=== PATIENT | male | born 1945 | race Caucasian/White ===

== ENCOUNTER 2021-03-24 07:19 | Outpatient (CLI) | payer OTHER, SELFPAY ==
[2021-03-24 07:26] VITALS: BMI 26.7
--- NOTE | 2021-03-24 07:27 | NMCV_ITS ---
NM negra perf SPECT r/s* [id number] Trin[address] Jonothai Age: 75 Gender: M : 1945 Exam Date: 03/24/2021 07:27 Ordering Phys: Adin Schumacher MD ([email or web address]) Technologist: ILIANA Borrero Exam Location: [facility] Indications: SHORTNESS OF BREATH STRESS TEST Please see separate stress test report in [facility] for full findings IMAGE PROTOCOL Rest/Stress 1 Exercise Day Radiopharmaceutical Dose (mCi) Administration Site Administered by Rest: Tc-99m 10.8 IV ILIANA Jarrett Sestamibi Stress:Tc-99m 32.8 IV ILIANA Jarrett Sestamibi Rest: 24-Mar-2021 60 Discovery 630 Stress: 24-Mar-2021 15 Discovery 630 Radiopharmaceutical was injected at 91 % maximum heart rate. Images obtained in supine and prone position. SPECT RESULTS Technical Quality: Excellent Raw Data Analysis: Normal Image Corrections: No attenuation or motion correction applied Summed Stress Score: 17 Summed Rest Score: 15 Summed Difference Score: 2 PERFUSION FINDINGS Moderate area of severely decreased tracer uptake in the mid and apical anterior and anteroseptal segments with a subtle area of reversibility in the apical anterior region. Moderate area of decreased uptake in the mid and apical inferior wall region, with some reversibility in the mid inferior region. Moderate to severely decreased tracer uptake in the apical segments with no significant reversibility. FUNCTIONAL RESULTS (calculated via Gated SPECT) Stress Image LV EF (%): 43 Stress EDV (mL):199 TID: 1.01 Stress ESV (mL):113 FUNCTIONAL FINDINGS: Segmental wall motion analysis revealed severe diffuse hypokinesia of the septum and the LV apex with moderate hypokinesia of the anterior wall segments. IMPRESSIONS 1. Myocardial perfusion imaging revealing moderate areas of decreased tracer uptake in the anterior, inferior and apical segments with a subtle areas of reversibility in the apical anterior and mid inferior wall segments, suggesting myocardial scarring with a small areas of jacinda-infarction ischemia in the distribution of the left anterior descending and right coronary artery. 2. Diminished LV ejection fraction 43%. 3. Multiple wall motion normalities as mentioned above. 4. Dilated LV cavity with an end-systolic volume of 113 ml. No similar previous studies are available for comparison Dr Adin Schumacher MD [facility] (Electronically Signed) Final Date: 24 March 2021 14:57 S
--- NOTE | 2021-03-24 07:27 | ECG_ITS ---
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 Interpretive Statements NAME OF STUDY: EXERCISE SESTAMIBI STRESS TEST INDICATION: Shortness of Breath PROCEDURE: The baseline electrocardiogram showed normal sinus rhythm with normal ST-Ts poor R wave progression. Possible old anteroseptal myocardial infarction.. At the baseline, the patient's blood pressure was 149/81 mm Hg with a heart rate of 97. The patient exercised for 3 minutes and 35 seconds on a standard Boy protocol. Patient attained a maximum heart rate of 144 beats per minute( 97 % of the maximum predicted heart rate) with a blood pressure at the peak exercise of 188/75 mm Hg. The EKG at the peak exercise revealed nonspecific T wave changes. Patient did not have any chest pain or any significant arrhythmis with the exercise Sestamibi was injected 1 minute prior to the peak exercise During the recovery phase, there were no new changes. Blood pressure at the end of the recovery phase was 145/85 mm Hg with a heart rate of 83 per minute. CONCLUSION: 1. Nonspecific EKG changes with the [treadmill exercise 2. No exercise-induced chest pain or cardiac arrhythmia 3. Impaired exercise tolerance, attained a maximum of 7.0 METs 4. Sestamibi/Sestamibi perfusion results pending; see separate report. Electronically Signed On 05-04-2021 0:12:36 CDT by Adin Schumacher M.D. [id number]
[2021-03-24 09:35] VITALS: BP 145/85; PULSE 85
== END 2021-03-24 07:20 | disposition home or self-care (01) ==
LOC: CDL 07:22
PROVIDERS: PCP Family Medicine; Visit Provider Internal Medicine Cardiovascular Disease
DX: R06.02 Shortness of breath (principal)
CPT/HCPCS: 78452; 93017; A9500

== ENCOUNTER 2021-03-24 07:49 | Outpatient (CLI) | payer OTHER, SELFPAY ==
[2021-03-24 08:36] LABS: Thyroid Stimulating Hormone 0.72 uIU/mL (0.27-4.20)
== END 2021-03-24 07:50 | disposition home or self-care (01) ==
LOC: LAB 07:50
PROVIDERS: PCP Family Medicine; Visit Provider Internal Medicine Cardiovascular Disease
DX: E03.9 Hypothyroidism, unspecified (principal); R00.1 Bradycardia, unspecified
CPT/HCPCS: 84443

== ENCOUNTER 2021-03-27 08:34 | Outpatient (CLI) | payer OTHER, SELFPAY ==
--- NOTE | 2021-03-27 08:45 | USCV_ITS ---
Russell Abdi Age: 75 Gender: M : 1945 Exam Date: 03/27/2021 08:48 Ordering Phys: Adin Schumacher MD ([email or web address]) Technologist: Patti Townsend Exam Location: [facility] [place] Indication: ATHEROSCLEROTIC HEART DISEASE BP: 124 / 80 HR: 58 Rhythm: Other Technical Quality: Adequate MEASUREMENTS (Male / Female) Normal Values 2D ECHO LV Diastolic Diameter PLAX 5.4 cm 4.2 - 5.9 / 3.9 - 5.3 cm LV Systolic Diameter PLAX 4.3 cm IVS Diastolic Thickness 1.6 cm 0.6 - 1.0 / 0.6 - 0.9 cm IVS Systolic Thickness 1.7 cm LVPW Diastolic Thickness 1.6 cm 0.6 - 1.0 / 0.6 - 0.9 cm LVPW Systolic Thickness 1.9 cm LVOT Diameter 2.0 cm LV Ejection Fraction 2D Teich 43.5 % LV Ejection Fraction MOD 2C 40.8 % LV Ejection Fraction 2C AL 40.7 % LA Diameter 3.5 cm LA Width 2.9 cm LA Height 4.4 cm RA Width 2.7 cm RA Height 4.0 cm Aorta at Sinotubular Diameter 2.8 cm M-MODE LV Diastolic Diameter MM 6.6 cm 4.2 - 5.9 / 3.9 - 5.3 cm LV Systolic Diameter MM 5.3 cm LV Ejection Fraction MM Teich 39.1 % IVS Diastolic Thickness MM 1.1 cm 0.6 - 1.0 / 0.6 - 0.9 cm IVS Systolic Thickness MM 1.3 cm LVPW Diastolic Thickness MM 1.3 cm 0.6 - 1.0 / 0.6 - 0.9 cm LVPW Systolic Thickness MM 1.9 cm Aortic Annulus Diameter 2.9 cm LA Ao Ratio MM 1.4 MV E Point Septal Separation 1.2 cm DOPPLER AV Peak Velocity 144.0 cm/s LVOT Peak Velocity 93.0 cm/s AV Area Cont Eq vti 1.9 cm squared AV Area Cont Eq pk 2.1 cm squared MV Peak Velocity 100.0 cm/s MV Area PHT 3.1 cm squared Mitral E to A Ratio 0.7 MV E' Velocity 31.0 cm/s Mitral E to MV E' Ratio 7.3 Mitral E to LV E' Lateral Ratio 6.2 Mitral E to LV E' Septal Ratio 8.7 TR Peak Velocity 163.9 cm/s TR Peak Gradient 10.7 mmHg TR Mean Velocity 201.9 cm/s TR Mean Gradient 16.6 mmHg TR Velocity Time Integral 69.8 cm Right Atrial Pressure 3.0 mmHg Pulmonary Artery Systolic Pressu 13.7 mmHg PV Peak Velocity 94.0 cm/s RV Acceleration Time 0.1 s RV Ejection Time 0.3 s RV AcT/ET 0.4 FINDINGS Left Ventricle Normal LV size with reduced ejection fraction of 41%. Severe hypokinesia of the septum, anteroseptum and the apical segments.Grade I/IV diastolic dysfunction (abnormal relaxation filling pattern), normal to mildly elevated filling pressures. Right Ventricle Normal right ventricular size and systolic function. Right Atrium Normal right atrial size. Left Atrium Mildly increased left atrial size. Mitral Valve Thickened mitral valve. Mild to moderate mitral valve regurgitation. Aortic Valve Thickened aortic valve. Tricuspid Valve Mild tricuspid valve regurgitation. Pulmonic Valve Pulmonic valve not well visualized. Pericardium No pericardial effusion. Aorta Normal aortic annulus size. CONCLUSIONS Normal LV size with reduced ejection fraction of 41%. Severe hypokinesia of the septum, anteroseptum and the apical segments.Grade I/IV diastolic dysfunction (abnormal relaxation filling pattern), normal to mildly elevated filling pressures. Thickened mitral valve. Mild to moderate mitral valve regurgitation. Thickened aortic valve. Mildly increased left atrial size. PA pressure could not be calculated properly. There is no pericardial effusion. There are no intracardiac masses. No previous study is available for comparison. Dr Adin Schumacher MD [facility] (Electronically Signed) Final Date: 27 March 2021 23:37 S
== END 2021-03-27 08:35 | disposition home or self-care (01) ==
PROVIDERS: PCP Family Medicine; Visit Provider Internal Medicine Cardiovascular Disease
DX: I25.10 Atherosclerotic heart disease of native coronary artery without angina pectoris (principal); I35.8 Other nonrheumatic aortic valve disorders
CPT/HCPCS: 93306

== ENCOUNTER → 2021-04-20 10:31 | Outpatient (BNVA) | payer OTHER, SELFPAY | PROVIDERS: PCP Family Medicine; Visit Provider Internal Medicine Cardiovascular Disease | DX: E78.5 Hyperlipidemia, unspecified (principal); I25.10 Atherosclerotic heart disease of native coronary artery without angina pectoris; R00.1 Bradycardia, unspecified; Z01.812 Encounter for preprocedural laboratory examination; Z20.822 Contact with and (suspected) exposure to COVID-19; Z01.818 Encounter for other preprocedural examination | CPT/HCPCS: 80048; 83880; 85025; 85610; 86850; 86900; 87635 ==

== ENCOUNTER 2021-04-25 05:45 | Day surgery (SDC) | payer OTHER, MEDICARE, SELFPAY ==
[2021-04-25] VITALS (29 sets, daily range): BP systolic 114–166; BP diastolic 63–92; PULSE 43–66; RESP 0–18; TEMP 36.6; O2SAT 93–99; BMI 27.1
--- NOTE | 2021-04-25 06:00 | XACV_ITS ---
Ht: 180 cm Wt: 88 kg BSA: 2.12 m2 Gender: Male : 1945 Any Known Allergies: Other Exam Priority: Routine Indication(s): - Abnormal nuclear perfusion study Procedure(s): Procedure Description: Diagnostic procedure Procedure Description: Left Heart Catheterization Procedure Description: Left ventriculography Procedure Description: Venous Graft Catheterization Procedure Description: ZAPATA Graft Catheterization Procedure Description: Coronary Angiography Diagnostic Cath Status: Elective Diagnostic Findings * Coronary angiography shows right dominance. * Left main is a small to medium caliber vessel with a mild diffuse disease. * The left anterior descending artery appears to be totally occluded proximally. * The left circumflex artery was found to give off a high obtuse marginal branch which bifurcates proximally. One of the bifurcation branches were found to have competitive blood flow. Proximal segment of this artery was found to have moderate diffuse disease. * The right coronary artery is a small to medium caliber dominant vessel with no significant stenotic lesions. * The saphenous venous graft to the obtuse marginal artery was found to be widely patent with no significant stenotic lesion. The distal anastomotic site appears to have diffuse ectasia. * The saphenous venous graft to the diagonal branch was found to be patent, antegradely filling up the mid and distal left anterior descending artery. * The ZAPATA to the left anterior sending artery was found to be atretic. Conclusions 1. Patient has prior CABG. 2. 75-year-old white male with history of coronary disease, status post coronary artery bypass surgery, presented with dyspnea on exertion. Echocardiogram revealed elevation fraction around 40 to 45% with multiple wall motion normalities. Myocardial perfusion imaging revealing areas of fixed defects with small areas of reversible defects, suggestive of myocardial scarring with jacinda-infarction ischemia. For further evaluation of his coronary status as well as the graft status, a cardiac catheterization was recommended. Patient underwent left heart catheterization with left and right coronary angiogram,LV angiogram and graft angiogram today. The findings are as follows. 3. Total occlusion of the left interesting artery proximally at the ostium. Moderate diffuse disease in one of the bifurcation branches of the first obtuse marginal artery. Patent venous graft to the diagonal artery and obtuse marginal artery. The ZAPATA to the LAD was found to be atretic. LV ejection fraction around 35%. LVEDP of 19 mmHg.. Recommendations * Continue current medical management and risk factor modification. Diagnostic RX Recommendation: medical therapy and/or counseling LV EDP: 19 mmHg Ventriculography Ejection Fraction: 35.0 % Left Ventriculography Findings: * LV gram was performed in the ANDREW projection. The LV cavity was found to be dilated. There is diffuse hypokinesia of the left ventricle. LV ejection fraction was around 35%. No obvious filling defects were noted. The study was a suboptimal quality. The LVEDP was 19 mmHg. Pressures Phase:Rest AO : 151 / 23 ( 53 ) @ 6:42:00 AM LV : 151 / -6 / 19 @ 6:41:00 AM 150 / -4 / 22 @ 6:42:00 AM Clinical Evaluation EBL: 5mL-10mL Procedural Details Procedure Consent Obtained. Admit Source: Out Patient. Current Diagnosis : Chest Pain. Pre-Procedure Time Out. Identified patient by full name and date of as verbalized by the patient/guarantor. Does the consent match the physician's order: Yes. Accurate & Complete Informed Consent: Yes. Inpatient/Outpatient History & Physical on Chart: Yes. If H&P is completed, is and addenduem needed: No; If yes, is the addendum complete: N/A. Visualize and Verify Site with Patient/Guarantor: N/A. Relevant Radiology Images available: Yes. Pre-op teaching completed and patient verbalized understanding. The risks, benefits, and alternatives of sedation and/or procedure were discussed by physician. The patient agrees to continue. Procedure started. CSHA Clinical Fraility Score: 3: Managing Well. Neck Band Operator Indications: Cardiomyopathy. Chest Pain Symptom Assessment: Atypical Angina. Cardiovascular Instability: No. Patient is Stable. Correct patient, site and procedure confirmed by cath team. Current diagnosis: Chest Pain. PERRLA. Strong, equal hand legal arbitrator bilaterally. Lungs clear x 5 lobes. IV Site on Arrival: 20 gauge in the right anticubital. IV Fluids: 0.9% NaCl at KVO. 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 Pre Procedural Pulses: bilateral radial was 3+. Pre Procedural Pulses: bilateral posterior tibial was 1+. Pre Procedural Pulses: bilateral dorsalis pedis was 2+. Oxygen started at 3liters/min via nasal canula. bilateral groins was prepped with chloroprep then draped in the usual sterile fashion. Physician notified. Baseline sample Acquired. HR: 59 BPM. Physician arrived. Physician scrubbed in. Equipment: 5F - Femoral. Equipment: 6F - Femoral. Heparinized Saline (2 units/mL), 1000 mL bag. Kit, Micropuncture. Cardiac Cath Pack. ACIST Manifold Kit Model BT 2000. Inventory is JJ 5F 11cm Shakira Plus Sheath. Immediate Pre-Procedure Time Out. Correct Patient: Yes; Correct Procedure: Yes; Correct Site: Yes; Correct Patient Position: Yes; Correct Supplies: Yes; Dried Flammable Prep: Yes; Blood Products Available: N/A;. Lidocaine 1% infiltrated to the right groin. Arterial access obtained with micropuncture set. A CRD 5F JL4 Diagnostic Catheter was advanced over the wire and used for Left coronary angiography. Catheter seated in the LCS. Multiple views taken of left coronary artery. Catheter removed over the wire. A CRD 5F JR4 Diagnostic Catheter was advanced over the wire and used for Right coronary angiography. Multiple views taken of right coronary artery. Redirected to the grafts. SVG's to Diaganol visualized and patent. SVG's to OM visualized and patent. Catheter redirected to the IM graft. ZAPATA to LAD visualized. Catheter removed over the wire. A CRD 5F 145 Angled Pig Diagnostic Catheter was advanced over the wire and used for Ventriculography. EDP Sample taken: LV 151/-7,19; HR: 58 BPM; SpO2: 99%. LV gram performed in ANDREW @ 10 mL/second for a total of 30 mL. Patient EF: Abnormal. EDP Sample taken: LV 150/-5,22; HR: 56 BPM; SpO2: 99%. Pullback taken: LV Off; AO Off; Mean: , Peak to Peak: , SEP: ; HR: 56 BPM; SpO2: 99%. Patient's family updated. Physician review of films. Physician Scrubbed out. Post op Diagnosis: Atretic ZAPATA, Patient venous grafts to OM AND DIAGONAL. A Suture was successful obtaining hemostatsis at the Right Femoral artery insertion site. Sheath(s) sutured into position with 2-0 silk and sterile 4x4's and Op-site applied over the site. No oozing or signs and symptoms of hematoma noted. Arterial sheath flushed and connected to tranducer and pressure bag with heparinized saline. Post Procedure: Pulses reassessed and unchanged. PERRLA. Strong, equal hand legal arbitrator bilaterally. No VTE prophylaxis required. Medication's Wasted: Lidocaine 1% = 4 mL. Medication's Wasted: Heparin = 3000 units. Medication's Wasted: Fentanyl 25 mcg. Medication's Wasted: Versed = 0.5 mg. Total IV fluids: 45 mL. Fluoro: 6:07. Contrast type used: Omnipaque 300 mgI/mL, 500 mL bottle. Omnipaque 153 ml. Complications: NONE. Estimated blood loss: 5mL-10mL. Procedure completed. Patient transferred by bed to CPRU. Vital chart was stopped. Access Site Site: Right Femoral artery Sheath Size: 5 Fr Hemostasis Method: Suture Hemostasis Success: Successful Procedure Medications Start: 7:20 AM Stop: 7:20 AM Medication: Fentanyl Amount: 50 mcg Route: I.V. Start: 7:20 AM Stop: 7:20 AM Medication: Versed Amount: 1 mg Route: I.V. Start: 7:26 AM Stop: 7: AM Medication: Fentanyl Amount: 25 mcg Route: I.V. Start: 7:26 AM Stop: 7:26 AM Medication: Versed Amount: 0.5 mg Route: I.V. Start: 7:27 AM Stop: 7: AM Medication: Heparin Amount: 1500 units Route: I.V. I, the attending physician, have reviewed and verified all procedure medications. Yes, all medications given per verbal order History/Risk Factors Hypertension: Yes Dyslipidemia: Yes Peripheral Arterial Disease (PAD): No Myocardial Infarction (WA): No Obesity: No Renal Disease: No Prior Interventions PCI: No CABG: Yes Valve Surgery: No Report Signatures Finalized by Dr Adin Schumacher MD [facility] on 04/25/2021 08:40 PM
[2021-04-25] MEDS: diphenhydrAMINE 50 mg Capsule PO (06:17)
--- NOTE | 2021-04-25 07:10 | W.PM.OPSUD ---
Surgery/Procedure H&P Update DATE OF PROCEDURE: April 25, 2021 DATE H&P PERFORMED: 04/12/21 H&P UPDATE INFORMATION: I have reviewed H&P completed within last 30 days, I have examined patient prior to procedure and No changes to prior documentation PREOP DIAGNOSIS: ASHD PRIMARY INDICATION FOR PROCEDURE: WYATT/abnormal myocardial perfusion imaging/ S/P CABG PLANNED PROCEDURE: Operation Date: 04/25/21 07:00 Proposed Procedures p Cardiac Catheterization(Left) - Adin Schumacher MD PATIENT REASSESSED PRIOR TO SEDATION, WITH NO CHANGE NOTED: Yes PHYSICAL EXAM: alert, clear to auscultation bilaterally and regular rate & rhythm AIRWAY EVAL/ANESTHESIA PLAN: normal airway, see other exam findings, ASA III, Monitored Anesthesia, Local Anesthesia, Risks, benefits & alternatives of sedation and/or procedure discussed and Patient agrees to continue as planned
--- NOTE | 2021-04-25 07:55 | PC.NURSE ---
recovery recvd pt from test lab technician post diagnostic [facility]. arrived with a sheath in place but test lab technician staff is pulling it now. pt placed on monitor and will be monitored per protocol. sinus nando. pt tired but able to arouse when called on. pt educated on right leg restrictions and will be educated throughout recovery. pt also educated on restriction and acknowledged understanding. she plans to stay bedside while in recovery.
--- NOTE | 2021-04-25 08:15 | PC.NURSE ---
site check access site now with dressing in place. no hematoma or bleeding noted. again pt educated on restrictions of right leg. pt and again acknowledged understanding. pt still sinus nando in rhythm. pt only states he is in pain when i feel for any bruising in the groin. states when i am not checking he is in no pain.
--- NOTE | 2021-04-25 13:21 | PC.NURSE ---
pt up and walked the length of CPRU. pt complains of no pain. feels good to walk lunch given to pt.
== END 2021-04-25 14:31 | disposition home or self-care (01) ==
PROVIDERS: PCP Family Medicine; Visit Provider Internal Medicine Cardiovascular Disease
DX: I25.110 Atherosclerotic heart disease of native coronary artery with unstable angina pectoris (principal); I25.82 Chronic total occlusion of coronary artery; Z95.1 Presence of aortocoronary bypass graft; I10 Essential (primary) hypertension; E78.5 Hyperlipidemia, unspecified; Z79.82 Long term (current) use of aspirin; N40.0 Benign prostatic hyperplasia without lower urinary tract symptoms; E03.9 Hypothyroidism, unspecified; Z82.49 Family history of ischemic heart disease and other diseases of the circulatory system
CPT/HCPCS: 36415; 93459; C1769; C1887; C1894; J1644; J2250; J3010; J7030; Q0163; Q9967

== ENCOUNTER 2021-04-28 09:07 | Outpatient (CLI) | payer OTHER, MEDICARE, SELFPAY ==
--- NOTE | 2021-04-28 | NMCV_ITS ---
[place] [id number] Russell Abdi Age: 75 Gender: M : 1945 Exam Date: 04/28/2021 09:21 Ordering Phys: Adin Schumacher MD ([email or web address]) Technologist: ILIANA Borrero Exam Location: [facility] Indications: CARDIOMYOPATHY, CABG Camera Used: Vertical Acuity Imaging Protocol: three view gated blood pool study Technical Image Quality: Good Dose: Admin Site: Administered By: Tc-99m Tagged RBCs: 24.5 IV - Right ILIANA Jarrett Antecubital PYP: EJECTION FRACTION: Automatic LV EF: 50 Rest RV EF: Manual LV EF: FINDINGS Mild diffuse hypokinesia of the septum and the LV apex LV ejection fraction of 50% CONCLUSIONS 1. Left ventricular ejection fraction 50%. 2. LV wall motion analysis revealing mild diffuse hypokinesia of the septum and the LV apex Dr Adin Schumacher MD [facility] (Electronically Signed) Final Date: 28 April 2021 18:14 S
--- NOTE | 2021-04-28 09:21 | NMCV_ITS ---
[place] [id number] Russell Abdi Age: 75 Gender: M : 1945 Exam Date: 04/28/2021 09:21 Ordering Phys: Adin Schumacher MD ([email or web address]) Technologist: ILIANA Borrero Exam Location: [facility] Indications: CARDIOMYOPATHY, CABG Camera Used: [employer] Protocol: three view gated blood pool study Technical Image Quality: Good Dose: Admin Site: Administered By: Tc-99m Tagged RBCs: 24.5 IV - Right ILIANA Jarrett Antecubital PYP: EJECTION FRACTION: Automatic LV EF: 50 Rest RV EF: Manual LV EF: FINDINGS Mild diffuse hypokinesia of the septum and the LV apex LV ejection fraction of 50% CONCLUSIONS 1. Left ventricular ejection fraction 50%. 2. LV wall motion analysis revealing mild diffuse hypokinesia of the septum and the LV apex Dr Adin Schumacher MD [facility] (Electronically Signed) Final Date: 28 April 2021 18:14 S
== END 2021-04-28 09:08 | disposition home or self-care (01) ==
LOC: RAD 09:12
PROVIDERS: PCP Family Medicine; Visit Provider Internal Medicine Cardiovascular Disease
DX: Z95.1 Presence of aortocoronary bypass graft (principal); I42.9 Cardiomyopathy, unspecified; I51.89 Other ill-defined heart diseases
CPT/HCPCS: 78472; 78496; A9560

== ENCOUNTER → 2021-05-03 13:48 | Outpatient (BNVA) | payer OTHER, SELFPAY | PROVIDERS: PCP Family Medicine; Visit Provider Nurse Practitioner Family | DX: I25.10 Atherosclerotic heart disease of native coronary artery without angina pectoris (principal) | CPT/HCPCS: 80048 ==

== ENCOUNTER → 2021-05-25 15:39 | Outpatient (BNVA) | payer OTHER, SELFPAY | PROVIDERS: PCP Family Medicine; Visit Provider Internal Medicine Cardiovascular Disease | DX: I25.5 Ischemic cardiomyopathy (principal); R06.02 Shortness of breath; I50.33 Acute on chronic diastolic (congestive) heart failure; E78.5 Hyperlipidemia, unspecified | CPT/HCPCS: 80048; 83880 ==

== ENCOUNTER → 2021-11-20 10:48 | Outpatient (BNVA) | payer OTHER, SELFPAY | PROVIDERS: PCP Family Medicine; Visit Provider Internal Medicine Cardiovascular Disease | DX: I25.5 Ischemic cardiomyopathy (principal); G47.33 Obstructive sleep apnea (adult) (pediatric); I25.10 Atherosclerotic heart disease of native coronary artery without angina pectoris; E78.5 Hyperlipidemia, unspecified; E03.9 Hypothyroidism, unspecified; I10 Essential (primary) hypertension; Z79.82 Long term (current) use of aspirin; Z95.1 Presence of aortocoronary bypass graft; Z87.891 Personal history of nicotine dependence | CPT/HCPCS: 99214 ==

== ENCOUNTER → 2022-03-01 12:28 | Outpatient (BNVA) | payer OTHER, SELFPAY | PROVIDERS: PCP Family Medicine; Visit Provider Family Medicine | DX: R07.9 Chest pain, unspecified (principal); R10.13 Epigastric pain; R74.8 Abnormal levels of other serum enzymes; R74.01 Elevation of levels of liver transaminase levels | CPT/HCPCS: 80053; 83690; 83735; 84484; 85025; 86141 ==

== ENCOUNTER → 2022-03-06 13:39 | Outpatient (BNVA) | payer OTHER, SELFPAY | PROVIDERS: PCP Family Medicine; Visit Provider Family Medicine | DX: R74.01 Elevation of levels of liver transaminase levels (principal); R74.8 Abnormal levels of other serum enzymes; I25.5 Ischemic cardiomyopathy; E03.9 Hypothyroidism, unspecified; I10 Essential (primary) hypertension; E78.5 Hyperlipidemia, unspecified | CPT/HCPCS: 82977; 83615; 86618; 86664; 86665; 86666; 86757 ==

== ENCOUNTER 2022-04-06 09:47 | Outpatient (CLI) | payer MEDICARE, SELFPAY ==
--- NOTE | 2022-04-06 10:00 | CT_ITS ---
WS: [id number] CT ABDOMEN AND PELVIS WITH CONTRAST HISTORY: Abdominal pain, possible liver abnormality. TECHNIQUE: Imaging performed of the abdomen and pelvis with IV contrast. Single phase imaging of the abdomen. Coronal and sagittal reformats are submitted. All CT scans at [facility] use at [address] [address] one of these dose optimization techniques: automated exposure control; mA and/or kV adjustment per patient size (includes targeted exams where dose is matched to clinical indication); or iterative re construction. IV CONTRAST: Omnipaque 350; 95 mL IV. Oral contrast: No DLP: 1156.33 mGy.cm COMPARISON: None available. Lower thorax: Numerous tiny microfoci throughout the lung bases. These are predominantly calcified. H eart is normal size. No hiatal hernia. Liver/biliary system: Normal size liver. Mild decreased attenuation from hepatic steatosis at the fal ciform ligament. Mild central bile duct dilatation. Common bile duct is dilated measuring up to 12 mm . This may be based on the patient's cholecystectomy. No mass identified at the pancreatic head is no stone in the distal duct. Gallbladder: Status post cholecystectomy. Pancreas: Normal size pancreas and pancreatic duct. No adjacent inflammation. Spleen: Splenic granulomata. Normal size. Adrenal glands: Normal. Right kidney: Normal size kidney with mild perinephric stranding. Cortical hypodensities. Some of the se are too small to characterize. The largest in the mid kidney measures 2.2 x 2.6 cm. No renal obstr uction. No solid mass. Left kidney: Normal size with mild perinephric stranding. Cortical hypodensities. Some of these are t oo small to characterize. No solid mass. Aorta: Mild atherosclerosis with no aneurysm. Stenosis involving the proximal celiac axis. No complet e occlusion. This calcification in the proximal celiac axis. SMA is normal. Lymphadenopathy: None. Free fluid: None. GI tract: Normally distended stomach. No small bowel obstruction. No ischemic changes throughout the GI tract are evident. No wall thickening. Normal appendix. Numerous diverticula in the distal colon w ithout acute diverticulitis. Abdominal wall: Unremarkable abdominal wall. No hernia. Pelvis: No free fluid or adenopathy within the pelvis. Prostate gland enlargement with calcifications . Mild encroachment into the bladder. No bladder wall enhancement. Bones: RIGHT scoliosis lumbar spine. No destructive bone lesion. CT/CT abdomen pelvis w con* [id number] IMPRESSION: 1. 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 No ischemic changes at this time. Patient is at risk for a GI tract ischemia. 2. Dilated common bile duct may be physiologic and related to the cholecystect sandi. 3. Prior cholecystectomy. 4. No liver lesion is identified other than mild hepatic steatosis along the f alciform ligament and the central bile duct dilatation. 5. Bilateral renal cysts and too small to characterize cortical hypodensities. 6. Colonic diverticulosis without acute diverticulitis.
== END 2022-04-06 09:48 | disposition home or self-care (01) ==
PROVIDERS: PCP Family Medicine; Visit Provider Family Medicine
DX: R74.8 Abnormal levels of other serum enzymes (principal); K57.90 Diverticulosis of intestine, part unspecified, without perforation or abscess without bleeding; Q61.02 Congenital multiple renal cysts; Z90.49 Acquired absence of other specified parts of digestive tract
CPT/HCPCS: 74177; Q9967

== ENCOUNTER 2022-04-13 16:50 | Emergency (ER) | payer OTHER, MEDICARE, SELFPAY ==
[2022-04-13] VITALS (9 sets, daily range): BP systolic 119–151; BP diastolic 61–82; PULSE 52–88; RESP 15–20; TEMP 36.4; O2SAT 96–99; BMI 25.5
--- NOTE | 2022-04-13 17:02 | ED_ITS ---
HPI - Chest Pain General: Chief Complaint: Chest Pain Stated Complaint: Chest pains Time Seen by Provider: 04/13/22 17:02 History of Present Illness: Mr. Blackwell is a 76-year-old gentleman with significant past medical history of hypertension, hyperlipidemia, CAD with history of CABG, ischemic cardiomyopathy, celiac artery stenosis who presents to the emergency department due to epigastric abdominal pain with radiation to the back. Endorses symptoms of been intermittent for a number of months however been more severe today. Symptoms typically exacerbated by eating and caffeine. She denies associated changes in bowel function or hematuria. Intensity symptoms currently moderate to severe. Worse with palpation movement and exacerbating factors as above. Aching in quality. No other specific changes in health, exacerbating, or alleviating factors identified. Timing of current episode: constant Prior episodes: Yes Onset: during rest Pain location: epigastric Severity: severe Review of Systems General: Reports: 10 or more systems reviewed and unremarkable except in HPI and below PFSH ED PFSH: Medical History BPH (benign prostatic hyperplasia) CAD (coronary artery disease) Hypertension Hypothyroidism Surgical History History of hernia surgery Hx of CABG Hx of cataract extraction Hx of knee surgery Family History Father CAD (coronary artery disease) Cancer Brother No problems noted. Mother CAD (coronary artery disease) Stroke Family/Other Diabetes Denies family history of Clotting disorder Dementia Chronic kidney disease (CKD) Suicide Anesthesia complication Bleeding disorder Lung disease Social History Smoking and tobacco status: former smoker Alcohol intake: current Alcohol intake frequency: holidays/special occasions only Physical Exam Const: COMMON NORMALS: alert GENERAL APPEARANCE: cooperative and well developed HENMT: COMMON NORMALS: normocephalic and atraumatic HEAD & SCALP: normocephalic and atraumatic Eye: COMMON NORMALS: conjunctivae normal CONJUNCTIVA: Yes conjunctivae normal SCLERA: sclerae normal Neck/C-Spine: COMMON NORMALS: supple GENERAL: Yes trachea midline Resp: COMMON NORMALS: normal respiratory effort and clear to auscultation bilaterally EFFORT & INSPECTION: Yes able to speak in complete sentences A USCULTATION: clear to auscultation bilaterally Cardio: COMMON NORMALS: regular rate and regular rhythm RATE: regular rate RHYTHM: regular rhythm GI: COMMON NORMALS: Soft to palpation PALPATION: Yes Soft to palpation, Yes Tenderness to palpation present (GI) (Epigastric), No Guarding due to palpation present (GI) and No Rigid due to palpation Extremity: GENERAL: Yes normal exam except as noted and No edema Neuro: COMMON NORMALS: moves all extremities SENSORIUM/ORIENTATION: Yes alert and No Orientation impaired Psych: COMMON NORMALS: mental status grossly normal and Normal thought process present THOUGHT PROCESS: Normal thought process present Course ED course: - Patient was seen and evaluated by me at bedside - Patient placed on cardiac monitors, IV access obtained - Initial evaluation notable for exam as above. - Labs and xrays personally interpreted by me. EKG shows sinus rhythm with nonspecific ST segment abnormalities, no STEMI. -Aspirin and analgesia given - Labs notable for no leukocytosis, normal hemoglobin. Metabolic panel without significant change from baseline. Delta troponin negative. - Imaging notable for no lobar consolidation or pneumothorax. CTA of abdomen and pelvis demonstrates stenosis of celiac artery and renal artery without evidence of acute occlusion. - Upon serial reexamination after treatment the patient was improved - Based on patient history, evaluation, and testing as interpreted the most likely cause of the patient's condition is intestinal angina. Patient has plan already to follow-up with vascular surgery. - The results of ED evaluation were discussed with the patient including prescriptions and/or symptomatic cares (if applicable) including appropriate and responsible use, followup plan, and return precautions. The patient verbalized understanding and felt safe for discharge. - Patient discharged in satisfactory condition. Note: Click bubbles or prepopulated youssef in note writing are used for assistance with data collection and billing and are inherently more limited than narrative and other text portions of this note. Please use narrative for additional clinical history and defer to narrative/free test for any case of contradictory information. If information appears in only free text or click bubble it should be considered present or absent as reported. Please contact note flex o writer operator for clarifications of clinical information or contradictory information. MDM is a brief summary, contradictory or erroneous seeming information should be clarified and full note should be reviewed. Vital Signs: Vital signs: Vital Signs Temperature 97.5 F L 04/13/22 16:55 Pulse Rate 62 04/13/22 20:32 Respiratory Rate 19 H 04/13/22 20:44 Blood Pressure 132/66 04/13/22 20:44 Pulse Oximetry 96 04/13/22 20:44 Oxygen Delivery Me thod 04/13/22 19:26 MDM - Chest Pain Medical Decision Making 76-year-old gentleman presenting with is more likely epigastric pain initially described as chest pain. Likely related to intestinal angina. No evidence of acute surgical abdomen or surgical emergency. Patient comfortable with plan to follow-up in the outpatient setting as previously discussed with vascular surgery. Medical Records I reviewed the patient's medical records. Lab Data I reviewed the patient's lab results. : 04/13/22 17:29 04/13/22 17:29 Radiology Impressions Chest X-Ray 04/13/22 17:12 IMPRESSION: Old granulomatous disease. No acute infiltrate. Abdomen/Pelvis CTA 04/13/22 18:37 IMPRESSION: 1. Moderate atherosclerotic disease as described 2. Stenosis of the celiac artery and [id number] renal artery stenosis 3. No major vascular occlusion. 4. No source of gastrointestinal bleeding is identified Laboratory Results WBC 7.9 10^3/uL (4.0-10.0) 04/13/22 17:29 RBC 4.49 10^6/uL (4.1-5.3) 04/13/22 17:29 Hgb 14.5 g/dL (11.7-16.6) 04/13/22 17:29 Hct 42.6 % (42.0-52.0) 04/13/22 17:29 MCV 94.9 fl (80-94) H 04/13/22 17:29 MCH 32.3 pg (28.0-34.0) 04/13/22 17:29 MCHC 34.0 g/dL (30.0-36.0) 04/13/22 17:29 RDW 12.6 % (12.1-15.1) 04/13/22 17:29 Plt Count 235 10^3/cmm (130-400) 04/13/22 17:29 MPV 8.3 fL (7.4-10.4) 04/13/22 17:29 Neut % (Auto) 53.7 % 04/13/22 17:29 Lymph % (Auto) 32.9 % 04/13/22 17:29 [place] % (Auto) 10.7 % 04/13/22 17: Eos % (Auto) 2.0 % 04/13/22 17: Baso % (Auto) 0.6 % 04/13/22 17: Neut # (Auto) 4.24 10^3/uL (1.8-7.7) 04/13/22: Lymph # (Auto) 2.6 10^3/uL (0.8-4.8) 04/13/22: [place] # (Auto) 0.9 10^3/uL (0.2-0.9) 04/13/22: Eos # (Auto) 0.2 10^3/uL (0.0-0.8) 04/13/22: Baso # (Auto) 0.1 10^3/uL (0.0-0.1) 04/13/22: Nucleated RBC % (auto) 0 % 04/13/22: Nucleated RBCs # 0.0 /100WBC 04/13/22 17: Sodium 139 mmol/L (136-145) 04/13/22 17: Potassium 4.6 mmol/L (3.5-5.1) 04/13/22: Chloride 104 mmol/L (98-107) 04/13/22: Carbon Dioxide 25 mmol/L (22-29) 04/13/22: Anion Gap 14.6 (5-19) 04/13/22 17:29 BUN 17 mg/dL (8-23) 04/13/22: Creatinine 0.8 mg/dL (0.7-1.2) 04/13/22 17:29 GFR Calculation Not Reportable 04/13/22 17: Glucose 82 mg/dL (65-115) 04/13/22: Calculated Osmolality 289 mOsm/kg (285-295) 04/13/22: Lactate 1.3 mmol/L (0.5-2.2) 04/13/22: Calcium 9.3 mg/dL (8.5-10.5) 04/13/22 17: Total Bilirubin 0.7 mg/dL (0.15-1.2) 04/13/22: AST 65 U/L (0-40) H 04/13/22 17:29 ALT 76 U/L (0-41) H 04/13/22 17:29 Alkaline Phosphatase 298 U/L (40-130) H 04/13/22 17:29 Troponin T Baseline 13 ng/L (0-15) 04/13/22 17:29 Troponin T 120 Minute 11.84 ng/L (0-15) 04/13/22 19:25 Delta Troponin T -1.16 ABS# (0-10) L 04/13/22 19:25 NT-Pro-B Natriuret Pep 251 pg/mL (0-125) H 04/13/22 17:29 Total Protein 7.7 g/dL (6.6-8.7) 04/13/22 17:29 Albumin 4.4 g/dL (3.5-5.2) 04/13/22 17:29 Globulin 3.3 g/dL (1.3-4.6) 04/13/22 17:29 Lipase 20 U/L (13-60) 04/13/22 17:29 Discharge Plan Discharge Patient Disposition: Home Clinical Impression: Intestinal angina Condition: Stable Prescriptions: New ondansetron 4 mg tablet,disintegrating 4 mg PO Q8H PRN (Reason: nausea and vomiting) Qty: 15 0RF oxycodone 5 mg tablet 5 mg PO Q4H PRN (Reason: pain) Qty: 14 0RF No Action aspirin [Adult Aspirin Regimen] 81 mg tablet,delayed release (DR/EC) 81 mg PO DAILY atorvastatin 40 mg tablet 40 mg PO DAILY metoprolol succinate 25 mg tablet extended release 24 hr 25 mg PO DAILY nitroglycerin [Nitrostat] 0.4 mg tablet, sublingual 0.4 mg sublingual Q5M PRN (Reason: CP) Rx Instructions: do not exceed 3 doses per episode tamsulosin 0.4 mg capsule 0.4 mg PO DAILY levothyroxine 150 mcg capsule 150 mcg PO DAILY magnesium oxide 400 mg (241.3 mg magnesium) tablet 400 mg PO BID Qty: 200 3RF Entresto 49-51 mg tablet 1 tab PO BID 30 Days Qty: 60 3RF sildenafil 50 mg tablet 50 mg PO DAILY Qty: 30 3RF Rx Instructions: take 1 tablet by mouth as directed 30-60 minutes prior to sexual activity zinc 15 mg Tablet 15 mg PO DAILY Prilosec 10 mg Susp,Delayed Release For Recon 20 mg PO DAILY cholecalciferol (vitamin D3) [Vitamin D3] 125 mcg (5,000 unit) Tablet 150 mcg PO DAILY Discharge Orders: Discharge ED (Routine); Ordered 04/13/22 Ordered By: Zane Henderson Referrals: Camilo Harrell MD [Primary Care Provider] - Discharge Diet: Usual diet Discharge Activity: Increase activity as tolerated Patient Instructions: Abdominal Pain (ED), Opioid Safety Activity Restrictions/Additional Instructions: Thank you for visiting the emergency department. You were seen and evaluated for abdominal pain. The most likely cause of your symptoms is related to celiac artery stenosis and intestinal angina. Please continue plan to follow-up with vascular surgery. Please return to the emergency department for worsening symptoms, fever, any blood in stool or vomiting, or anything else that you are concerned about a feel needs emergency department evaluation. Coding Level of Care Code ED Mobile Designer for Vanessa Fwmichael Exam Comprehensive
--- NOTE | 2022-04-13 17:12 | ECG_ITS ---
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 Measurements Intervals [place] Rate: 58 P: 60 GA: 167 QRS: -3 QRSD: 101 T: 57 QT: 391 QTc: 386 Interpretive Statements SINUS BRADYCARDIA ANTERIOR MYOCARDIAL INFARCTION , OF INDETERMINATE AGE No previous ECG available for comparison Electronically Signed On 04-14-2022 13:17:17 CDT by Lula Perrin M.D. [id number] f
--- NOTE | 2022-04-13 17:12 | XRR_ITS ---
PROCEDURE INFORMATION: Exam: XR Chest Exam date and time: 04/13/2022 5:26 PM Age: 76 years old Clinical indication: Angina; Additional info: Cp TECHNIQUE: Imaging protocol: Radiologic exam of the chest. Views: 1 view. COMPARISON: CT abdomen pelvis w con* [id number] 04/06/2022 10:22 AM FINDINGS: Lungs: There are numerous scattered tiny calcified granulomas throughout both lungs consistent with prior granulomatous infection. Pleural spaces: Unremarkable. No pleural effusion. No pneumothorax. Heart/Mediastinum: Heart is upper limits normal in size. Bones/joints: Sternotomy wires and mediastinal surgical clips are present, consistent with previous coronary arterial bypass grafting. There is healing fracture midshaft of the left clavicle. XR/XR chest 1V portable [id number] IMPRESSION: Old granulomatous disease. No acute infiltrate.
[2022-04-13] MEDS: aspirin 81 mg Chew Tablet 324 MG PO (17:18)
[2022-04-13] MEDS: morphine 4 mg/mL SDV 1 mL IVP (17:32)
[2022-04-13 17:34] LABS: Basophils # 0.1 10^3/uL (0.0-0.1); Basophils % 0.6 %; Eosinophils # 0.2 10^3/uL (0.0-0.8); Hematocrit 42.6 % (42.0-52.0); Hemoglobin 14.5 g/dL (11.7-16.6); Lymphocytes # 2.6 10^3/uL (0.8-4.8); Lymphocytes % 32.9 %; Mean Corpuscular Hemoglobin 32.3 pg (28.0-34.0); Mean Corpuscular Volume 94.9 fl (80-94); Mean Platelet Volume 8.3 fL (7.4-10.4); Monocytes # 0.9 10^3/uL (0.2-0.9); Monocytes % 10.7 %; Neutrophils # 4.24 10^3/uL (1.8-7.7); Neutrophils % 53.7 %; Nucleated Red Blood Cells % 0 %; Platelet Count 235 10^3/cmm (130-400); Red Blood Count 4.49 10^6/uL (4.1-5.3); Red Cell Distribution Width 12.6 % (12.1-15.1); White Blood Count 7.9 10^3/uL (4.0-10.0)
[2022-04-13 17:51] LABS: Lactate (Lactic Acid level) 1.3 mmol/L (0.5-2.2)
[2022-04-13 17:59] LABS: Troponin(5th) Baseline 13 ng/L (0-15)
[2022-04-13 18:08] LABS: Alanine Aminotransferase 76 U/L (0-41); Albumin Level 4.4 g/dL (3.5-5.2); Alkaline Phosphatase 298 U/L (40-130); Anion Gap 14.6 (5-19); Aspartate Amino Transferase 65 U/L (0-40); Blood Urea Nitrogen 17 mg/dL (8-23); Calcium 9.3 mg/dL (8.5-10.5); Carbon Dioxide 25 mmol/L (22-29); Chloride 104 mmol/L (98-107); Globulin 3.3 g/dL (1.3-4.6); Glucose 82 mg/dL (65-115); Lipase 20 U/L (13-60); NT Pro B Type Natriuretic Pept 251 pg/mL (0-125); Osmolality Calculated 289 mOsm/kg (285-295); Potassium 4.6 mmol/L (3.5-5.1); Sodium 139 mmol/L (136-145); Total Bilirubin 0.7 mg/dL (0.15-1.2); Total Protein 7.7 g/dL (6.6-8.7)
--- NOTE | 2022-04-13 18:37 | CTR_ITS ---
PROCEDURE INFORMATION: Exam: CTA Abdomen and Pelvis With Contrast, GI Bleeding Exam date and time: 04/13/2022 6:59 PM Age: 76 years old Clinical indication: Abdominal pain; Generalized; Prior surgery; Surgery date: 6+ months; Surgery type: Gb, open heart surgery x2; Patient HX: Verified with Dr. 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 3D rendering (Not supervised by radiologist): MIP and/or 3D reconstructed images were created by the technologist. Radiation optimization: All CT scans at this facility use at least one of these dose optimization techniques: automated exposure control; mA and/or kV adjustment per patient size (includes targeted exams where dose is matched to clinical indication); or iterative reconstruction. Contrast material: OMNIPAQUE 350; Contrast volume: 95 ml; Contrast route: INTRAVENOUS (IV); COMPARISON: CT abdomen pelvis w con* [id number] 04/06/2022 10:22 AM RADIATION DOSE METRICS: Total DLP (mGy-cm): 616.28 FINDINGS: Lungs: There are numerous calcified granulomas scattered throughout the lung bases as seen on the recent chest radiographs. Aorta: The aorta demonstrates moderate atherosclerotic calcification. There is no evidence of an abdominal aortic aneurysm. There is atherosclerotic plaque in the infrarenal abdominal aorta with mild distal stenosis. There is some ulceration of the atherosclerotic plaque. Celiac trunk and mesenteric arteries: There is a 1.5 cm sized long segment of severe stenosis of the celiac artery origin. Renal arteries: There is a single renal artery on each side. There is mild to moderate stenosis of the proximal right renal artery and mild stenosis of proximal left renal artery. Right iliac arteries: No occlusion or significant stenosis. Left iliac arteries: No occlusion or significant stenosis. Liver: There is no focal abnormality within the liver. Gallbladder and bile ducts: There has been a cholecystectomy. There is moderate biliary tract dilatation which is not unusual post cholecystectomy. There is greater degree of biliary tract dilatation compared with 04/06/2022, common bile duct measures 16 mm. Pancreas: The pancreas is normal. Spleen: The spleen demonstrates punctate calcifications, consistent with remote granulomatous organism exposure. Adrenal glands: The adrenal glands are normal. Kidneys and ureters: Multiple benign-appearing simple cortical cysts are present in both kidneys not significantly changed. There is no evidence of hydronephrosis. There is no evidence of renal or ureteral calcifications. Stomach and bowel: There is moderate diverticulosis of the colon. Many of the diverticula contain calcific material. No active extravasation of contrast is noted. If there is persistent concern for gastrointestinal bleeding study including precontrast and also delayed images may be helpful in identifying gastrointestinal bleeding. Appendix: A normal appendix is identified. Intraperitoneal space: Unremarkable. No free air. No significant fluid collection. Lymph nodes: Unremarkable. No enlarged lymph nodes. Urinary bladder: Unremarkable. No mass. Reproductive: The prostate demonstrates moderate nonspecific enlargement. The seminal vesicles are normal. The prostate gland demonstrates nonspecific parenchymal calcifications. Bones/joints: No acute fracture. No dislocation. Soft tissues: There is left inguinal hernia containing only fat. There are bilateral inguinal hernias containing fat. CT/CT angio abdomen pelvis [id number] IMPRESSION: 1. Moderate atherosclerotic disease as described 2. Stenosis of the celiac artery and [id number] renal artery stenosis 3. No major vascular occlusion. 4. No source of gastrointestinal bleeding is identified
--- NOTE | 2022-04-13 19:26 | PC.NURSE ---
2 hour troponin sent at this time per orders.
--- NOTE | 2022-04-13 19:58 | ECG_ITS ---
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 Measurements Intervals [place] Rate: 55 P: 66 SC: 188 QRS: 24 QRSD: 88 T: 74 QT: 399 QTc: 382 Interpretive Statements SINUS BRADYCARDIA POSSIBLE ANTERIOR MYOCARDIAL INFARCTION , OF INDETERMINATE AGE Compared to ECG 04/13/2022 17:00:39 No significant changes Electronically Signed On 04-14-2022 13:19:11 CDT by Lula Perrin M.D. [id number]
[2022-04-13 20:15] LABS: Troponin 5 2HR 11.84 ng/L (0-15)
[2022-04-13 20:42] LABS: Troponin 5 2HR Delta -1.16 ABS# (0-10)
== END 2022-04-13 20:56 | disposition home or self-care (01) ==
PROVIDERS: Emergency Provider Emergency Medicine; PCP Family Medicine
DX: K55.1 Chronic vascular disorders of intestine (principal); Z79.82 Long term (current) use of aspirin; I25.10 Atherosclerotic heart disease of native coronary artery without angina pectoris; I10 Essential (primary) hypertension; Z95.1 Presence of aortocoronary bypass graft; Z87.891 Personal history of nicotine dependence
CPT/HCPCS: 71045; 74174; 80053; 83605; 83690; 83880; 84484; 85025; 93005; 96374; 99285; J2270; Q9967

== ENCOUNTER → 2022-05-28 09:54 | Outpatient (BNVA) | payer OTHER, SELFPAY | PROVIDERS: PCP Family Medicine; Visit Provider Nurse Practitioner Family | DX: I25.10 Atherosclerotic heart disease of native coronary artery without angina pectoris (principal); I10 Essential (primary) hypertension; Z95.1 Presence of aortocoronary bypass graft | CPT/HCPCS: 99214 ==

== ENCOUNTER 2022-06-05 12:14 | Emergency (ER) | payer OTHER, MEDICARE, SELFPAY ==
[2022-06-05] VITALS (60 sets, daily range): BP systolic 94–128; BP diastolic 45–65; PULSE 53–79; RESP 11–31; TEMP 36.4; O2SAT 91–100; BMI 24.7
--- NOTE | 2022-06-05 12:33 | XR_ITS ---
WS: [id number] Exam: XR chest 1V portable [id number] Date/Time of Exam: 06/05/2022 1:05 PM Reason For Exam: EKG changes Comparison 04/13/2022. The lungs are hyperinflated and clear. Numerous scattered calcified granulomas throughout both lungs as well as the mediastinum. Normal cardiomediastinal silhouette. Signs of previous CABG surgery. No p leural effusions. Regional bony structures are intact. Old left clavicle fracture. XR/XR chest 1V portable [id number] IMPRESSION: 1. Healed granulomatous disease. No acute cardiopulmonary process.
--- NOTE | 2022-06-05 12:37 | ECG_ITS ---
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 Measurements Intervals [place] Rate: 67 P: 56 WI: 173 QRS: -15 QRSD: 90 T: 64 QT: 376 QTc: 399 Interpretive Statements SINUS RHYTHM POSSIBLE ANTERIOR MYOCARDIAL INFARCTION , OF INDETERMINATE AGE [30 ms Q WAVE IN V3/V4, OR R < 0.2 mV IN V4] INTERPRETATION BASED ON A DEFAULT AGE OF 40 YEARS Compared to ECG 04/13/2022 19:58:02 Sinus bradycardia no longer present Myocardial infarct finding still present Electronically Signed On 06-06-2022 0:19:38 CDT by Adin Schumacher M.D. [id number]
[2022-06-05 13:41] LABS: Basophils % 0.5 %; Eosinophils # 0.1 10^3/uL (0.0-0.8); Eosinophils % 0.6 %; Hematocrit 41.5 % (42.0-52.0); Hemoglobin 13.8 g/dL (11.7-16.6); Lymphocytes # 1.7 10^3/uL (0.8-4.8); Lymphocytes % 20.5 %; Mean Corpuscular HGB Conc 33.3 g/dL (30.0-36.0); Mean Corpuscular Hemoglobin 32.2 pg (28.0-34.0); Mean Corpuscular Volume 96.7 fl (80-94); Mean Platelet Volume 8.1 fL (7.4-10.4); Monocytes # 0.5 10^3/uL (0.2-0.9); Monocytes % 6.5 %; Neutrophils # 5.91 10^3/uL (1.8-7.7); Neutrophils % 71.4 %; Nucleated Red Blood Cells % 0 %; Platelet Count 252 10^3/cmm (130-400); Red Blood Count 4.29 10^6/uL (4.1-5.3); Red Cell Distribution Width 12.9 % (12.1-15.1); White Blood Count 8.3 10^3/uL (4.0-10.0)
[2022-06-05 14:09] LABS: Troponin T (5th) Once 15 ng/L (0-15)
--- NOTE | 2022-06-05 14:14 | ED_ITS ---
HPI - General Adult General: Chief complaint: General Medical Stated complaint: Dr. Harrell sent for EKG changes and BP issues Time Seen by Provider: 06/05/22 13:45 History of Present Illness: This patient was sent to our emergency department because of low blood pressure. He apparently has had a history of hypertension but has had his medications adjusted downwards recently but continues to still have low blood pressures. According to the family his blood pressure was in the range of approximately 70/40 2-day. He also has been noting that he has been lightheaded and a little bit more fatigued with activity recently. He denied any chest pain. He has a history of recent common bile duct stone retrieval done at [facility] but no sequelae from that procedure.Apparently has a history of ischemic cardiomyopathy in the past. No recent illness. He has been eating and drinking normally. Associated symptoms: Deny chest pain, headache(s), nausea, rash, palpitations, syncope or vomiting Review of Systems Const: Denies: fever(s) or chills Eyes: Denies: change in vision ENMT: Denies: odynophagia, nasal discharge or nasal congestion Card: Reports: lightheadedness; Denies: chest pain, palpitations, irregular heart rhythm, edema, swelling of feet/ankles, syncope or pre-syncope Resp: Denies: productive cough, non-productive cough, wheezing or stridor GI: Denies: abdominal pain, nausea, vomiting or diarrhea : Denies: flank pain, difficulty urinating, dysuria or urinary frequency Musc: Denies: neck pain, back pain, extremity pain or extremity swelling Skin/Breast: Denies: rash Neuro: Denies: headache(s), numbness in extremities, lack of coordination, dizziness, vertigo, Slurred speech present or seizure-like activity Psych: Denies: anxiety or depression Endo: Denies: polyuria or polydipsia Balwinder/Lymph: Denies: easy bruising or easy bleeding PFSH ED 2 PFSH: Medical History BPH (benign prostatic hyperplasia) CAD (coronary artery disease) Hypertension Hypothyroidism Surgical History History of hernia surgery Hx of CABG Hx of cataract extraction Hx of knee surgery Family History Father CAD (coronary artery disease) Cancer Brother No problems noted. Mother CAD (coronary artery disease) Stroke Family/Other Diabetes Denies family history of Clotting disorder Dementia Chronic kidney disease (CKD) Suicide Anesthesia complication Bleeding disorder Lung disease Social History Smoking and tobacco status: never smoked Alcohol intake: current Alcohol intake frequency: holidays/special occasions only Physical Exam Narrative: EXAM NARRATIVE: He is alert and cooperative. Hard of hearing with less than a loud spoken voice. Const: COMMON NORMALS: no acute distress, average body habitus, patient oriented x3 and healthy appearing HENMT: COMMON NORMALS: normocephalic, Normal nasal mucous membranes and turbinates present, moist oral mucous membranes and oropharynx normal HEAD & SCALP: normocephalic NOSE: Normal nasal mucous membranes and turbinates present Eye: COMMON NORMALS: Equal, round and reactive pupils present, EOMs intact bilaterally and conjunctivae normal CONJUNCTIVA: Yes conjunctivae normal PUPIL: Yes Equal, round and reactive pupils present Neck/C-Spine: COMMON NORMALS: full ROM, no JVD and No carotid bruits Chest: COMMONS NORMALS: normal inspection of the chest Resp: COMMON NORMALS: normal respiratory effort, No retractions, No use of accessory muscles and clear to auscultation bilaterally AUSCULTATION: clear to auscultation bilaterally Cardio: COMMON NORMALS: no JVD, regular rate, regular rhythm and No murmurs present (Cardio) RATE: regular rate RHYTHM: regular rhythm GI: COMMON NORMALS: Normal to inspection, nondistended, normoactive bowel sounds present, Soft to palpation, non-tender and no bruits PALPATION: Yes Soft to palpation : COMMON NORMALS: Yes no CVA tenderness BLADDER/KIDNEY EXAM: Yes no CVA tenderness Back/Pelvis: COMMON NORMALS: no CVA tenderness, thoracic and lumbar spine normal to inspection, no thoracic nor lumbar tenderness and thoraco-lumbar ROM normal Extremity: COMMON NORMALS: normal to inspection, full ROM, no calf tenderness and no pedal edema Neuro: COMMON NORMALS: patient oriented x3, moves all extremities, no focal motor deficits and no sensory deficits noted CRANIAL NERVES: Yes CN normal except as noted Psych: COMMON NORMALS: mental status grossly normal Skin: COMMON NORMALS: no rashes or lesions noted, no wounds and turgor normal GENERAL SKIN EXAM: no rashes or lesions noted and turgor normal Course Reevaluation(s): Reevaluation #1: Patient's been observed in the emergency department for prolonged period of time. His laboratories are reassuring. No elevation in troponin, no EKG changes. His pressures have improved with observation and he ambulated about the emergency department without any difficulty. Given his current scenario with some medications which may be contributing to his blood pressure being lower than optimal in addition to his weight loss I think it is reasonable for us to temporarily take him off his metoprolol and follow his blood pressures. Both he and his family voiced understanding that recommendations. Time: 18:26 Vital Signs: Vital signs: Vital Signs Temperature 97.6 F 06/05/22 12:18 Pulse Rate 60 06/05/22 17:55 Respiratory Rate 15 06/05/22 17:55 Blood Pressure 103/50 06/05/22 17:55 Pulse Oximetry 92 06/05/22 17:55 Oxygen Delivery Me thod 06/05/22 12:18 [facility] - General Adult Medical Decision Making Gentleman with known hypertension coronary disease presented to the emergency department because of concerns about low blood pressure. There is been attempts to lower his metoprolol dose but his pressure is trended downwards despite those efforts. The patient has not had any other concomitant symptoms such as chest pain shortness of breath etc. but has had some lightheadedness and dizziness. His evaluation here did not reveal any evidence of acute ischemia, other concerning changes. His pressures as well as his biomarkers and EKGs were followed and were reassuring. He has been taken off his beta-philippe temporarily and trending his blood pressures at home. Likely weight loss, his a dditive medications have contributed to his low blood pressure. He is currently stable to be discharged with outpatient follow-up. Medical Records I reviewed the patient's medical records. Prior echo revealed decreased ejection fraction of 41% with diastolic dysfunction. Lab Data I reviewed the patient's lab results. : 06/05/22 13:27 06/05/22 13:27 Radiology Impressions Chest X-Ray 06/05/22 12:33 IMPRESSION: 1. Healed granulomatous disease. No acute cardiopulmonary process. Laboratory Results WBC 8.3 10^3/uL (4.0-10.0) 06/05/22 13:27 RBC 4.29 10^6/uL (4.1-5.3) 06/05/22 13: Hgb 13.8 g/dL (11.7-16.6) 06/05/22 13: Hct 41.5 % (42.0-52.0) L 06/05/22 13: MCV 96.7 fl (80-94) H 06/05/22 13: MCH 32.2 pg (28.0-34.0) 06/05/22 13: MCHC 33.3 g/dL (30.0-36.0) 06/05/22 13: RDW 12.9 % (12.1-15.1) 06/05/22 13: Plt Count 252 10^3/cmm (130-400) 06/05/22 13: MPV 8.1 fL (7.4-10.4) 06/05/22 13: Neut % (Auto) 71.4 % 06/05/22 13: Lymph % (Auto) 20.5 % 06/05/22 13:27 [place] % (Auto) 6.5 % 06/05/22 13: Eos % (Auto) 0.6 % 06/05/22 13: Baso % (Auto) 0.5 % 06/05/22 13: Neut # (Auto) 5.91 10^3/uL (1.8-7.7) 06/05/22 13: Lymph # (Auto) 1.7 10^3/uL (0.8-4.8) 06/05/22 13: [place] # (Auto) 0.5 10^3/uL (0.2-0.9) 06/05/22 13: Eos # (Auto) 0.1 10^3/uL (0.0-0.8) 06/05/22 13: Baso # (Auto) 0.0 10^3/uL (0.0-0.1) 06/05/22 13: Nucleated RBC % (auto) 0 % 06/05/22 13: Nucleated RBCs # 0.0 /100WBC 06/05/22 13: Sodium 136 mmol/L (136-145) 06/05/22 13:27 Potassium 4.6 mmol/L (3.5-5.1) 06/05/22 13:27 Chloride 100 mmol/L (98-107) 06/05/22 13: Carbon Dioxide 24 mmol/L (22-29) 06/05/22 13:27 Anion Gap 16.6 (5-19) 06/05/22 13:27 BUN 20 mg/dL (8-23) 06/05/22 13: Creatinine 1.0 mg/dL (0.7-1.2) 06/05/22 13:27 GFR Calculation Not Reportable 06/05/22 13: Glucose 153 mg/dL (65-115) H 06/05/22 13:27 Calculated Osmolality 288 mOsm/kg (285-295) 06/05/22 13: Calcium 9.7 mg/dL (8.5-10.5) 06/05/22 13: Total Bilirubin 0.7 mg/dL (0.15-1.2) 06/05/22 13: AST 24 U/L (0-40) 06/05/22 13:27 ALT 39 U/L (0-41) 06/05/22 13:27 Alkaline Phosphatase 305 U/L (40-130) H 06/05/22 13:27 Troponin T Gen 5 ng/L 15 ng/L (0-15) 06/05/22 13:27 NT-Pro-B Natriuret Pep 276 pg/mL (0-125) H 06/05/22 13:27 Total Protein 7.3 g/dL (6.6-8.7) 06/05/22 13:27 Albumin 4.0 g/dL (3.5-5.2) 06/05/22 13:27 Globulin 3.3 g/dL (1.3-4.6) 06/05/22 13:27 Urine Color Yellow (Yellow) 06/05/22 14:44 Urine Appearance Clear (CLEAR) 06/05/22 14:44 Urine pH 6 (5-7) 06/05/22 14:44 Ur Specific [place] 1.005 (1.005-1.030) 06/05/22 14:44 Urine Protein Neg (Negative) 06/05/22 14:44 Urine Glucose (UA) Norm (Normal) 06/05/22 14:44 Urine Ketones Negative (Negative) 06/05/22 14:44 Urine Blood Neg (Negative) 06/05/22 14:44 Urine Nitrate Negative (Negative) 06/05/22 14:44 Urine Bilirubin Neg (Negative) 06/05/22 14:44 Urine Urobilinogen Norm mg/dL (Negative) 06/05/22 14:44 Ur Leukocyte Esterase Negative (Negative) 06/05/22 14:44 EKG Data EKG 1: I personally reviewed and interpreted this EKG as follows: Interpretation: Resting EKG revealed ventricular rate of 67 bpm. Normal intervals, normal axis. Does have loss of R waves anteriorly. No acute ST-T wave changes. Compared with prior tracings within the system no acute changes. Computer generated interpretation: Chest X-Ray 06/05/22 12:33 IMPRESSION: 1. Healed granulomatous disease. No acute cardiopulmonary process. EKG 2: I personally reviewed and interpreted this EKG as follows: Interpretation: Second EKG this visit revealed a controlled ventricular rate of 65 bpm. Normal intervals, normal axis. And normal intervals. Still has loss of R wave anteriorly but this is unchanged from prior tracing this visit as well asPrior EKGs within the system. Computer generated interpretation: Chest X-Ray 06/05/22 12:33 IMPRESSION: 1. Healed granulomatous disease. No acute cardiopulmonary process. Discharge Plan Discharge Patient Disposition: Home Clinical Impression: Nonspecific low blood pressure reading Condition: Stable Prescriptions: No Action aspirin [Adult Aspirin Regimen] 81 mg tablet,delayed release (DR/EC) 81 mg PO DAILY atorvastatin 40 mg tablet 40 mg PO DAILY tamsulosin 0.4 mg capsule 0.4 mg PO DAILY levothyroxine 150 mcg capsule 150 mcg PO DAILY metoprolol succinate 25 mg tablet extended release 24 hr 12.5 mg PO DAILY Qty: 30 3RF magnesium oxide 400 mg (241.3 mg magnesium) tablet 400 mg PO BID Qty: 200 3RF Entresto 49-51 mg tablet 1 tab PO BID 30 Days Qty: 60 3RF Prilosec 10 mg Susp,Delayed Release For Recon 20 mg PO DAILY cholecalciferol (vitamin D3) [Vitamin D3] 125 mcg (5,000 unit) Tablet 150 mcg PO DAILY zinc acetate 50 mg (zinc) Capsule 50 mg PO DAILY sildenafil 50 mg tablet 50 mg PO DAILY PRN (Reason: Sexual Activity) Rx Instructions: take 1 tablet by mouth as directed 30-60 minutes prior to sexual activity ondansetron 4 mg tablet,disintegrating 4 mg PO Q8H PRN (Reason: nausea and vomiting) Qty: 15 0RF Discharge Orders: Discharge ED (Routine); Ordered 06/05/22 Ordered By: Jorge Alberto Curry Referrals: Camilo Harrell MD [Primary Care Provider] - 2 weeks Discharge Diet: Usual diet and Low Salt Discharge Activity: Resume usual activity Patient Instructions: Opioid Safety, Pain Management Activity Restrictions/Additional Instructions: Stop taking your metoprolol. Continue all your other usual medications. Monitor your blood pressure twice daily and record those numbers. Should you develop chest pain shortness of breath or your blood pressure is continually higher than 160/100 you may restart your metoprolol at 6.25 mg and seek care.. Otherwise continue to monitor your blood pressure and call your doctor for a 2- week follow-up. If you develop any other concerning symptoms as described return to this or the nearest emergency department. Coding Level of Care Code ED Director Software Development for Vanessa Garcia Exam Comprehensive
[2022-06-05 14:17] LABS: Alanine Aminotransferase 39 U/L (0-41); Alkaline Phosphatase 305 U/L (40-130); Anion Gap 16.6 (5-19); Aspartate Amino Transferase 24 U/L (0-40); Blood Urea Nitrogen 20 mg/dL (8-23); Calcium 9.7 mg/dL (8.5-10.5); Carbon Dioxide 24 mmol/L (22-29); Chloride 100 mmol/L (98-107); Globulin 3.3 g/dL (1.3-4.6); Glucose 153 mg/dL (65-115); NT Pro B Type Natriuretic Pept 276 pg/mL (0-125); Osmolality Calculated 288 mOsm/kg (285-295); Potassium 4.6 mmol/L (3.5-5.1); Sodium 136 mmol/L (136-145); Total Bilirubin 0.7 mg/dL (0.15-1.2); Total Protein 7.3 g/dL (6.6-8.7)
[2022-06-05 14:46] LABS: Add Urine Microscopic? NO; Charge for UA Resulting for Rev
[2022-06-05 14:49] LABS: Specific Gravity, Urine 1.005 (1.005-1.030); Urine Appearance Clear (CLEAR); Urine Color Yellow (Yellow); pH Urine 6 (5-7)
[2022-06-05 14:50] LABS: Bilirubin Urine Neg (Negative); Blood Urine Neg (Negative); Glucose Urine UA Norm (Normal); Ketones Urine Negative (Negative); Leukocyte Esterase Urine Negative (Negative); Nitrate Urine Negative (Negative); Protein Urine Neg (Negative); Urobilinogen Urine Norm (Negative)
--- NOTE | 2022-06-05 15:08 | ECG_ITS ---
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 Measurements Intervals Walls Rate: 65 P: 33 NC: 168 QRS: -23 QRSD: 93 T: 48 QT: 376 QTc: 393 Interpretive Statements SINUS RHYTHM POSSIBLE ANTERIOR MYOCARDIAL INFARCTION , OF INDETERMINATE AGE [30 ms Q WAVE IN V3/V4, OR R < 0.2 mV IN V4] Compared to ECG 06/05/2022 12:24:59 No significant changes Electronically Signed On 06-06-2022 0:20:22 CDT by Adin Schumacher M.D. [email or web address] [email or web address] [id number]
== END 2022-06-05 18:55 | disposition home or self-care (01) ==
PROVIDERS: Family Medicine; Emergency Provider Emergency Medicine; PCP Family Medicine
DX: R03.1 Nonspecific low blood-pressure reading (principal); I10 Essential (primary) hypertension; I25.10 Atherosclerotic heart disease of native coronary artery without angina pectoris
CPT/HCPCS: 71045; 80053; 81003; 83880; 84484; 85025; 93005; 99285

== ENCOUNTER → 2022-06-25 12:54 | Outpatient (BNVA) | payer OTHER, SELFPAY | PROVIDERS: PCP Family Medicine; Visit Provider Internal Medicine Cardiovascular Disease | DX: I11.0 Hypertensive heart disease with heart failure (principal); I50.9 Heart failure, unspecified; I25.5 Ischemic cardiomyopathy; E78.5 Hyperlipidemia, unspecified; E03.9 Hypothyroidism, unspecified; G47.33 Obstructive sleep apnea (adult) (pediatric); I25.10 Atherosclerotic heart disease of native coronary artery without angina pectoris; Z95.1 Presence of aortocoronary bypass graft | CPT/HCPCS: 99214 ==

== ENCOUNTER 2022-08-17 09:12 | Outpatient (CLI) | payer OTHER, SELFPAY ==
--- NOTE | 2022-08-17 09:30 | USCV_ITS ---
Russell Abdi Age: 76 Gender: M : 1945 Exam Date: 08/17/2022 09:55 Ordering Phys: Adin Schumacher MD ([email or web address]) Technologist: Matthias Ruiz Exam Location: [facility] [place] Indication: hx cabg x4 BP: 127 / 74 HR: 55 Rhythm: Sinus Technical Quality: Adequate MEASUREMENTS (Male / Female) Normal Values 2D ECHO LV Diastolic Diameter PLAX 5.4 cm 4.2 - 5.9 / 3.9 - 5.3 cm LV Systolic Diameter PLAX 4.3 cm IVS Diastolic Thickness 1.0 cm 0.6 - 1.0 / 0.6 - 0.9 cm IVS Systolic Thickness 1.1 cm LVPW Diastolic Thickness 1.0 cm 0.6 - 1.0 / 0.6 - 0.9 cm LVPW Systolic Thickness 1.3 cm LVOT Diameter 2.1 cm LV Ejection Fraction 2D Teich 41.0 % LV Ejection Fraction MOD 2C 43.2 % LV Ejection Fraction 2C AL 44.8 % LA Diameter 4.0 cm IVC Diameter 1.2 cm M-MODE Aortic Annulus Diameter 3.2 cm LA Ao Ratio MM 1.4 MV E Point Septal Separation 1.0 cm DOPPLER AV Peak Velocity 149.0 cm/s LVOT Peak Velocity 96.0 cm/s AV Area Cont Eq vti 2.3 cm squared AV Area Cont Eq pk 2.2 cm squared MV Area PHT 5.0 cm squared Mitral E to A Ratio 1.7 MV E' Velocity 58.5 cm/s Mitral E to MV E' Ratio 9.3 Mitral E to LV E' Lateral Ratio 7.8 Mitral E to LV E' Septal Ratio 11.4 TR Peak Velocity 209.0 cm/s TR Peak Gradient 17.5 mmHg TV Peak E Velocity 67.0 cm/s Right Atrial Pressure 3.0 mmHg Pulmonary Artery Systolic Pressu 20.5 mmHg RV Acceleration Time 0.1 s FINDINGS Left Ventricle Diffuse hypokinesia of the left ventricule, more so of the septum and the anteroseptum. LV ejection fraction around 44%.Grade I/IV diastolic dysfunction (abnormal relaxation filling pattern), normal to mildly elevated filling pressures. Right Ventricle The right ventricle is normal in size and function. Right Atrium The right atrium is normal in size. Left Atrium The left atrium is normal in size. Mitral Valve Thickened mitral valve. Mild to moderate mitral valve regurgitation. Aortic Valve Thickened aortic valve. Tricuspid Valve Trace tricuspid valve regurgitation. Pulmonic Valve No gross abnormalities noted Pericardium Small echo-free space, anteriorly and posteriorly Aorta Normal aortic annulus size. IVC The inferior vena cava appears normal. CONCLUSIONS Diffuse hypokinesia of the left ventricule, more so of the septum and the anteroseptum. LV ejection fraction around 44%.Grade I/IV diastolic dysfunction (abnormal relaxation filling pattern), normal to mildly elevated filling pressures. Thickened mitral valve. Mild to moderate mitral valve regurgitation. Thickened aortic valve. Trace tricuspid valve regurgitation. Possible small pericardial effusion There are no intracardiac masses. Compared to the study from 03/27/2021, there may not be a significant change Dr Adin Schumacher MD [facility] (Electronically Signed) Final Date: 17 August 2022 12:59 S
== END 2022-08-17 09:13 | disposition home or self-care (01) ==
LOC: RAD 09:14
PROVIDERS: PCP Family Medicine; Visit Provider Internal Medicine Cardiovascular Disease
DX: I25.5 Ischemic cardiomyopathy (principal); I50.9 Heart failure, unspecified; Z95.1 Presence of aortocoronary bypass graft; I08.3 Combined rheumatic disorders of mitral, aortic and tricuspid valves
CPT/HCPCS: 93306

== ENCOUNTER → 2022-11-27 10:03 | Outpatient (BNVA) | payer OTHER, SELFPAY | PROVIDERS: PCP Family Medicine; Visit Provider Internal Medicine Cardiovascular Disease | DX: I25.10 Atherosclerotic heart disease of native coronary artery without angina pectoris (principal); I11.0 Hypertensive heart disease with heart failure; I50.9 Heart failure, unspecified; I25.5 Ischemic cardiomyopathy; G47.33 Obstructive sleep apnea (adult) (pediatric); E78.5 Hyperlipidemia, unspecified; E03.9 Hypothyroidism, unspecified; Z95.1 Presence of aortocoronary bypass graft; Z79.82 Long term (current) use of aspirin | CPT/HCPCS: 99214 ==

== ENCOUNTER 2023-01-05 16:22 | Outpatient (CLI) | payer MEDICARE, SELFPAY ==
[2023-01-09 13:04] LABS: Clostridium Difficile PCR NOT DETECTED (NOT DETECTED)
== END 2023-01-05 16:23 | disposition home or self-care (01) ==
LOC: LAB 16:23
PROVIDERS: PCP Family Medicine; Visit Provider Family Medicine
DX: R19.7 Diarrhea, unspecified (principal)
CPT/HCPCS: 87493

== ENCOUNTER → 2023-01-21 11:32 | Outpatient (BNVA) | payer MEDICARE, SELFPAY | PROVIDERS: PCP Family Medicine; Visit Provider Family Medicine | DX: Z51.81 Encounter for therapeutic drug level monitoring (principal); E83.42 Hypomagnesemia; R73.09 Other abnormal glucose; E03.9 Hypothyroidism, unspecified; E55.9 Vitamin D deficiency, unspecified; E53.8 Deficiency of other specified B group vitamins; R42 Dizziness and giddiness; I77.1 Stricture of artery; Z12.11 Encounter for screening for malignant neoplasm of colon; D64.9 Anemia, unspecified | CPT/HCPCS: 80053; 82306; 82607; 83036; 83735; 84439; 84443; 85025 ==

== ENCOUNTER → 2023-01-25 11:21 | Outpatient (BNVA) | payer OTHER, SELFPAY | PROVIDERS: PCP Family Medicine; Visit Provider Nurse Practitioner Family | DX: I25.10 Atherosclerotic heart disease of native coronary artery without angina pectoris (principal); I10 Essential (primary) hypertension; I25.5 Ischemic cardiomyopathy; Z87.891 Personal history of nicotine dependence; Z95.1 Presence of aortocoronary bypass graft | CPT/HCPCS: 99213 ==

== ENCOUNTER 2023-02-06 07:30 | Outpatient (CLI) | payer OTHER, SELFPAY ==
--- NOTE | 2023-02-06 07:45 | US_ITS ---
WS: [id number] Exam: US abdomen limited [id number] Date/Time of Exam: 02/06/2023 7:41 AM Reason For Exam: RUQ US due to elevated Alk phos/GGT The gallbladder is surgically absent. There is dilatation of the common bile duct measures 9.3 mm whi ch may be due to prior cholecystectomy. The liver is unremarkable and measures about 15.5 cm at great est dimension. The IVC shows phasic flow. The abdominal aorta is normal in caliber. 2.6 cm cyst in th e upper pole of the right kidney. The right kidney is otherwise unremarkable and measures 6 x 4.7 x 1 0.15 cm. The pancreas is unremarkable. No free fluid or mass in the right abdomen. US/US abdomen limited [id number] IMPRESSION: 1. Dilated common bile duct measuring 9.3 mm at greatest diameter. This may be due to the prior cholecystectomy. 2. The liver was unremarkable. 3. 2.6 cm cyst in the upper pole the right kidney. 4. No mass or abnormal fluid collection in the right abdomen.
== END 2023-02-06 07:31 | disposition home or self-care (01) ==
LOC: RAD 07:32
PROVIDERS: PCP Family Medicine; Visit Provider Family Medicine
DX: R74.8 Abnormal levels of other serum enzymes (principal); K83.8 Other specified diseases of biliary tract; N28.1 Cyst of kidney, acquired
CPT/HCPCS: 76705

== ENCOUNTER → 2023-06-18 10:51 | Outpatient (BNVA) | payer OTHER, SELFPAY | PROVIDERS: PCP Family Medicine; Visit Provider Internal Medicine Cardiovascular Disease | DX: R06.02 Shortness of breath (principal); E78.5 Hyperlipidemia, unspecified; I10 Essential (primary) hypertension | CPT/HCPCS: 36415; 80048; 80076; 83880; 99214 ==

== ENCOUNTER 2023-08-02 08:41 | Outpatient (CLI) | payer OTHER, SELFPAY ==
--- NOTE | 2023-08-02 08:48 | CT_ITS ---
WS: [id number] CT ABDOMEN PELVIS TECHNIQUE: Noncontrast CT of the abdomen and contrast-enhanced CT of the abdomen and pelvis with ricihe nal and sagittal reformatted images. CLINICAL INFORMATION: Abnormal liver function COMPARISON: CT 04/06/2022 DLP: 711.[address] scans at [facility] use at least one of these dose optimization techniques: automated e xposure control; mA and/or kV adjustment per patient size (includes targeted exams where dose is matc hed to clinical indication); or iterative reconstruction. FINDINGS: Diffuse fatty infiltration of the liver. Hepatomegaly. Intrahepatic biliary ductal dilatation similar to previous. Dilated common bile duct extending to the pancreatic head. Common bile duct measures ap proximately 14 mm similar to the prior studies. Small area of fat attenuation in the distal common bi le duct is indeterminate. This can be further evaluated with ERCP or MRCP to assess for intraductal l esion. Fatty infiltration along the falciform ligament similar to previous. Spleen granulomas. Normal GE jian ction. Air-fluid level in the stomach. Innumerable calcified granulomas in the lung bases. Mild fatty atrophy of the pancreas. Portal vein and splenic vein are patent. Adrenal glands are baldemar l. Normal renal parenchymal enhancement. No hydronephrosis. Simple bilateral renal cysts. 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 SMA is patent. Moderate aortic atheromatous disease with periph eral mural thrombus distally. Sigmoid diverticulosis. No evidence of acute diverticulitis. Evidence of prior inguinal hernia repair s. Calcified prostate measures approximately 5 cm in maximum dimension. Recommend correlation PSA. Mi ld diffuse bladder wall thickening can be seen with bladder outlet obstruction. Slight anterolisthesi s L4 on L5. IMPRESSION: 1. Nondependent megaly diffuse fatty filtration of the liver. 2. Mild intrahepatic bili ductal dilatation similar to the prior studies with fatty infiltration belem ng the falciform ligament. 3. Stable dilatation common bile duct measuring 14 mm. Small focal area of fat density in the distal common bile duct. Consider further evaluation with ERCP or MRCP to assess for intraductal lesion. Th is appears new from the prior studies. 4. Simple bilateral renal cysts. 5. Splenic granulomas and innumerable calcified granulomas in the lung bases. 6. Sigmoid diverticulosis. No evidence of acute diverticulitis. 7. Enlarged prostate with evidence of bladder outlet obstruction. Recommend correlation PSA. 8. No other acute findings.
[2023-08-02] MEDS: iohexol 350 mg/mL 500 mL Btl (per mL) IV (09:13)
== END 2023-08-02 08:42 | disposition home or self-care (01) ==
LOC: RAD 08:42
PROVIDERS: PCP Family Medicine; Visit Provider Emergency Medicine Emergency Medical Services
DX: R79.89 Other specified abnormal findings of blood chemistry (principal); K76.0 Fatty (change of) liver, not elsewhere classified; K57.30 Diverticulosis of large intestine without perforation or abscess without bleeding; N40.1 Benign prostatic hyperplasia with lower urinary tract symptoms; N13.8 Other obstructive and reflux uropathy
CPT/HCPCS: 74178; Q9967

== ENCOUNTER → 2023-08-06 18:17 | Outpatient (BNVA) | payer MEDICARE, OTHER, SELFPAY | PROVIDERS: PCP Family Medicine; Visit Provider Emergency Medicine | DX: S89.92XA Unspecified injury of left lower leg, initial encounter (principal); M23.92 Unspecified internal derangement of left knee; W19.XXXA Unspecified fall, initial encounter | CPT/HCPCS: 73562 ==

== ENCOUNTER → 2023-08-21 11:05 | Outpatient (BNVA) | payer MEDICARE, SELFPAY | PROVIDERS: PCP Family Medicine; Visit Provider Family Medicine | DX: N40.0 Benign prostatic hyperplasia without lower urinary tract symptoms (principal); K83.9 Disease of biliary tract, unspecified | CPT/HCPCS: 84153 ==

== ENCOUNTER → 2023-08-23 11:28 | Outpatient (BNVA) | payer MEDICARE, SELFPAY | PROVIDERS: PCP Family Medicine; Visit Provider Nurse Practitioner Family | DX: I25.5 Ischemic cardiomyopathy (principal); Z87.891 Personal history of nicotine dependence; I10 Essential (primary) hypertension | CPT/HCPCS: 99213 ==

== ENCOUNTER 2023-09-04 13:55 | Outpatient (CLI) | payer MEDICARE, SELFPAY ==
--- NOTE | 2023-09-04 14:15 | USCV_ITS ---
Russell Abdi Age: 77 Gender: M : 1945 Exam Date: 09/04/2023 14:14 Ordering Phys: Nilsa Martines Technologist: WAYNE Exam Location: [facility] – [place] Indication: CHRONIC HEART FAILURE BP: 116 / 77 HR: 71 Rhythm: Sinus Technical Quality: Adequate MEASUREMENTS (Male / Female) Normal Values 2D ECHO LVOT Diameter 2.0 cm LV Ejection Fraction MOD 2C 46.8 % LV Ejection Fraction 2C AL 47.0 % LA Diameter 3.4 cm LA Width 3.6 cm LA Height 4.5 cm RA Width 3.2 cm RA Height 3.8 cm Aorta at Sinotubular Diameter 2.3 cm IVC Diameter 1.2 cm M-MODE Aortic Annulus Diameter 2.5 cm LA Ao Ratio MM 1.2 MV E Point Septal Separation 1.1 cm DOPPLER AV Peak Velocity 157.0 cm/s LVOT Peak Velocity 97.0 cm/s AV Area Cont Eq vti 2.0 cm squared AV Area Cont Eq pk 1.9 cm squared MV Peak Velocity 103.0 cm/s MV Area PHT 2.9 cm squared Mitral E to A Ratio 0.8 MV E' Velocity 37.5 cm/s Mitral E to MV E' Ratio 7.6 Mitral E to LV E' Lateral Ratio 6.6 Mitral E to LV E' Septal Ratio 9.0 TR Peak Velocity 184.6 cm/s TR Peak Gradient 13.6 mmHg TR Mean Velocity 153.5 cm/s TR Mean Gradient 9.7 mmHg TR Velocity Time Integral 58.2 cm TV Peak E Velocity 63.0 cm/s Right Atrial Pressure 3.0 mmHg Pulmonary Artery Systolic Pressu 16.6 mmHg PV Peak Velocity 88.0 cm/s RV Acceleration Time 0.1 s RV Ejection Time 0.3 s RV AcT/ET 0.5 FINDINGS Left Ventricle Diffuse hypokinesia left ventricular ejection fraction of 47%. Mildly dilated LV cavity. Grade I/IV diastolic dysfunction (abnormal relaxation filling pattern), normal to mildly elevated filling pressures. Right Ventricle Normal right ventricular systolic function. Right Atrium Normal right atrial size. Left Atrium Mildly increased left atrial size. Mitral Valve No gross abnormalities noted. Mild-moderate mitral valve regurgitation. Aortic Valve No gross abnormalities noted Tricuspid Valve No gross abnormalities noted Pulmonic Valve Structurally normal pulmonic valve. Pericardium No pericardial effusion. Aorta Normal aortic annulus size. IVC Normal inferior vena cava. CONCLUSIONS Diffuse hypokinesia left ventricular ejection fraction of 47%. Mildly dilated LV cavity. Grade I/IV diastolic dysfunction (abnormal relaxation filling pattern), normal to mildly elevated filling pressures. Mildly increased left atrial size. Mild-moderate mitral valve regurgitation. There is no pericardial effusion. There are no intracardiac masses. Compared to the study from 08/17/2022, there may not be significant change. Dr Adin Schumacher MD [facility] (Electronically Signed) Final Date: 06 September 2023 19:56 S
== END 2023-09-04 13:56 | disposition home or self-care (01) ==
PROVIDERS: PCP Family Medicine; Visit Provider Nurse Practitioner Family
DX: I25.5 Ischemic cardiomyopathy (principal); I50.32 Chronic diastolic (congestive) heart failure
CPT/HCPCS: 93306

== ENCOUNTER 2023-09-25 07:50 | Outpatient (CLI) | payer MEDICARE, SELFPAY ==
--- NOTE | 2023-09-25 08:00 | MR_ITS ---
WS: [id number] MRI/MRCP OF THE ABDOMEN WITHOUT GADOLINIUM ENHANCEMENT TECHNIQUE: Coronal T2 Fase BH, Axial T2 Fase BH, Axial T2 FS BH, Zxial 3D Patterson BH, Axial DWI BH, 2D MRCP Radial BH, 3D MRCP (Resp), and Axial 3D Dyn BH Post sequences. CLINICAL INFORMATION: Fat density in common bile duct on CT COMPARISON: CT 08/02/2023 FINDINGS: Prior cholecystectomy. Dilatation of the common hepatic duct and common bile duct measuring up to 12 mm at the pancreatic head. Lobulated remnant cystic duct with wall septations or small polyps. Tiny c alculus at the common hepatic duct junction. Filling defect in the mid to distal common bile duct manuel suring 7 mm corresponds to the lesion seen on the prior CT and likely represents a calculus or possib ly polypoid lesion. Mild intrahepatic biliary ductal dilatation. Adrenal glands are normal. Small bilateral renal cysts. Splenic granulomas. Normal GE junction. Fatty atrophy of the pancreas. Normal pancreatic duct. Impression: 1. Filling defect in the mid to distal common bile duct measuring 7 mm corresponds to the CT finding s likely representing calculus or less likely polypoid lesion. Recommend ERCP in further evaluation. 2. Dilated cystic duct stump with small wall septations or polyps. Additional suspected tiny calculu s at the common hepatic duct junction. Series 701 image 13. 3. No other acute findings. 4. History of cholecystectomy.
== END 2023-09-25 07:51 | disposition home or self-care (01) ==
LOC: RAD 07:50
PROVIDERS: PCP Family Medicine; Visit Provider Family Medicine
DX: K83.9 Disease of biliary tract, unspecified (principal); K82.8 Other specified diseases of gallbladder; Z90.49 Acquired absence of other specified parts of digestive tract
CPT/HCPCS: 74181

== ENCOUNTER → 2023-12-18 14:59 | Outpatient (BNVA) | payer MEDICARE, SELFPAY | PROVIDERS: PCP Family Medicine; Visit Provider Internal Medicine Cardiovascular Disease | DX: I11.0 Hypertensive heart disease with heart failure (principal); I50.22 Chronic systolic (congestive) heart failure; E78.5 Hyperlipidemia, unspecified; I25.10 Atherosclerotic heart disease of native coronary artery without angina pectoris; Z87.891 Personal history of nicotine dependence; Z95.1 Presence of aortocoronary bypass graft | CPT/HCPCS: 99214 ==

== ENCOUNTER 2024-03-11 09:00 | Outpatient (CLI) | payer MEDICARE, SELFPAY ==
--- NOTE | 2024-03-11 09:05 | XRR_ITS ---
PROCEDURE INFORMATION: Exam: XR Left Hip Exam date and time: 03/11/2024 9:10 AM Age: 78 years old Clinical indication: Hip pain; Left hip; Additional info: Left buttock pain. Fell 6 months ago TECHNIQUE: Imaging protocol: Radiologic exam of the left hip. Views: 2 or 3 views hip with pelvis when performed. COMPARISON: CT abdomen pelvis wo/w [id number] 08/02/2023 9:09 AM FINDINGS: Bones/joints: No fracture or dislocation is noted. There are degenerative changes involving the lower lumbar spine. There is minimal joint space narrowing. There are small supra-acetabular osteophytes. Bony mineralization is normal. Soft tissues: Unremarkable. XR/XR hip LT 2-3V wo/w pel* [id number] IMPRESSION: 1. Mild osteoarthritis.
--- NOTE | 2024-03-11 09:05 | XRR_ITS ---
PROCEDURE INFORMATION: Exam: XR Left Knee Exam date and time: 03/11/2024 9:10 AM Age: 78 years old Clinical indication: Pain; Knee; Left; Additional info: Left knee pain, ongoing for 6 months. Worse with rom/walking TECHNIQUE: Imaging protocol: Radiologic exam of the left knee. Views: 3 views. COMPARISON: CR XR knee LT 3V* [id number] 08/06/2023 6:27 PM FINDINGS: Bones/joints: There is minimal joint space narrowing medially. No osteophytes are appreciated. No fracture or dislocation is noted. Bony mineralization is normal. There is no evidence of a significant joint effusion. Soft tissues: There are multiple surgical clips within the soft tissues. There is calcified plaque involving the arterial vasculature. XR/XR knee LT 3V* [id number] IMPRESSION: 1. Minimal joint space narrowing medially.
== END 2024-03-11 09:01 | disposition home or self-care (01) ==
LOC: RAD 09:02
PROVIDERS: PCP Family Medicine; Visit Provider Clinical Nurse Specialist Adult Health
DX: M16.12 Unilateral primary osteoarthritis, left hip (principal); M25.562 Pain in left knee; M54.32 Sciatica, left side
CPT/HCPCS: 73502; 73562

== ENCOUNTER 2024-03-24 08:14 | Outpatient (RCR) | payer MEDICARE, SELFPAY | END 2024-04-11 23:59 | disposition home or self-care (01) | LOC: SPT 08:14 | PROVIDERS: PCP Family Medicine; Visit Provider Clinical Nurse Specialist Adult Health | DX: S76.312D Strain of muscle, fascia and tendon of the posterior muscle group at thigh level, left thigh, subsequent encounter (principal); X58.XXXD Exposure to other specified factors, subsequent encounter | CPT/HCPCS: 97110; 97161 ==

== ENCOUNTER 2024-04-12 06:30 | Outpatient (RCR) | payer OTHER, SELFPAY | END 2024-05-11 23:59 | disposition home or self-care (01) | LOC: SPT 06:30 | PROVIDERS: PCP Family Medicine; Visit Provider Clinical Nurse Specialist Adult Health | DX: S76.312D Strain of muscle, fascia and tendon of the posterior muscle group at thigh level, left thigh, subsequent encounter (principal); X58.XXXD Exposure to other specified factors, subsequent encounter | CPT/HCPCS: 97110 ==

== ENCOUNTER 2024-05-11 13:03 | Outpatient (CLI) | payer OTHER, SELFPAY ==
--- NOTE | 2024-05-11 13:09 | CT_ITS ---
WS: [id number] CT chest wo con [id number] HISTORY: ABNORMAL INCIDENTAL FINDINGS ON SPINE XRAYS TECHNIQUE: Axial imaging performed through the thorax. Coronal and sagittal reformats are submitted. All CT scans at [facility] use at least one of these dose optimization techniques: automated exposure control; mA and/or kV adjustment per patient size (includes targeted exams where dose is mat ched to clinical indication); or iterative reconstruction. CONTRAST: Omnipaque 350; 100 mL IV. DLP: 374.90 mGy.cm COMPARISON: None available. Lungs and central airway: Marked emphysema with pulmonary hyperexpansion. Scattered areas of scarring and fibrosis. Mild pleural thickening and tagging. Numerous calcified granulomata. There is no domin ant mass. The majority of the scattered opacifications are all similar in appearance and probably due to scarring and fibrosis. Pleura: Normal. No pleural effusion. Heart and pericardium: Normal size heart with no pericardial effusion. Mediastinum and chelly: Extensive bilateral large calcified mediastinal and hilar lymph nodes. No addit ional adenopathy which is noncalcified. Vessels: Ectatic thoracic aorta. Moderate valved calcified plaque. Pulmonary artery size is slightly enlarged. 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 Upper abdomen: Only a small portion of the liver is included and there is air in the liver which is probably pneumobilia. No adrenal mass. Splenic granulomata. Osseous structures: No destructive process. CT/CT chest wo con [id number] IMPRESSION: 1. Extensive bilateral pulmonary opacifications with scarring and pleural thic kening and tagging and numerous granulomata. These changes all appear chronic w ith no discrete focal mass or pneumonia. 2. Mediastinal and hilar calcified lymph nodes. 3. Pneumobilia.
== END 2024-05-11 13:04 | disposition home or self-care (01) ==
LOC: RAD 13:04
PROVIDERS: PCP Family Medicine; Visit Provider Nurse Practitioner Family
DX: J43.9 Emphysema, unspecified (principal); J84.10 Pulmonary fibrosis, unspecified; I77.810 Thoracic aortic ectasia; Z95.1 Presence of aortocoronary bypass graft; D73.89 Other diseases of spleen; K83.8 Other specified diseases of biliary tract
CPT/HCPCS: 71250

== ENCOUNTER → 2024-06-25 15:06 | Outpatient (BNVA) | payer MEDICARE, SELFPAY | PROVIDERS: PCP Family Medicine; Visit Provider Internal Medicine Cardiovascular Disease | DX: I25.10 Atherosclerotic heart disease of native coronary artery without angina pectoris (principal); I25.5 Ischemic cardiomyopathy; I10 Essential (primary) hypertension; E78.5 Hyperlipidemia, unspecified; Z87.891 Personal history of nicotine dependence | CPT/HCPCS: 99214 ==

== ENCOUNTER → 2024-07-13 08:20 | Outpatient (BNVA) | payer MEDICARE, SELFPAY | PROVIDERS: PCP Family Medicine; Visit Provider Family Medicine | DX: E03.9 Hypothyroidism, unspecified (principal); R35.0 Frequency of micturition; E78.5 Hyperlipidemia, unspecified; Z13.220 Encounter for screening for lipoid disorders; Z51.81 Encounter for therapeutic drug level monitoring | CPT/HCPCS: 80053; 80061; 84153; 84439; 84443; 85025 ==

== ENCOUNTER → 2025-04-27 13:41 | Outpatient (BNVA) | payer MEDICARE, SELFPAY | PROVIDERS: PCP Family Medicine; Visit Provider Internal Medicine Cardiovascular Disease | DX: I25.10 Atherosclerotic heart disease of native coronary artery without angina pectoris (principal); I10 Essential (primary) hypertension; E78.5 Hyperlipidemia, unspecified; I25.5 Ischemic cardiomyopathy; Z79.82 Long term (current) use of aspirin; Z95.1 Presence of aortocoronary bypass graft; Z87.891 Personal history of nicotine dependence | CPT/HCPCS: 99214 ==